=== PATIENT | male | born 1940 | race Caucasian/White ===

== ENCOUNTER 2017-12-06 18:00 | Emergency (ER) | payer MEDICARE ==
[2017-12-06] MEDS ORDERED: Nitroglycerin 0.4 MG TAB (25 Tab Bottle) ONE (18:25)
[2017-12-06 18:56] LABS: #Basophils 0.1 thou/uL (0.0-0.2); #Eosinphils 0.3 thou/uL (0.0-0.7); #Lymphocytes 2.9 thou/uL (1.20-3.40); #Neutrophils 5.1 thou/uL (1.40-6.50); %Basophils 0.6 % (0.0-1.0); %Eosinophils 3.2 % (0.0-10.0); %Lymphocytes 30.8 % (21.0-51.0); %Monocytes 10.5 % (0.0-10.0); %Neutrophils 54.9 % (42.0-75.0); Hemoglobin 14.4 g/dL (14.0-18.0); Mean Corpuscular HGB CONC 33.7 g/dL (32.0-36.0); Mean Corpuscular Hemoglobin 34.8 pg (27.0-31.0); Mean Platelet Volume 7.7 fL (7.4-10.4); Platelet Count 275 thou/uL (130-400); RBC Distribution Width 12.4 % (11.5-14.5); Red Blood Cell (RBC) Count 4.13 mill/uL (4.70-6.10); White Blood Cell (WBC) Count 9.3 thou/uL (4.8-10.8)
[2017-12-06] MEDS ORDERED: Azithromycin 250 MG TAB ONE (19:13)
[2017-12-06 19:17] LABS: ALT (SGPT) 48 U/L (8-55); AST (SGOT) 34 U/L (5-34); Alkaline Phosphatase 68 U/L (40-150); Anion Gap 17 mmol/L (10-20); BUN (Urea Nitrogen) 15 mg/dL (8.4-25.7); Bilirubin, Total 0.5 mg/dL (0.2-1.2); Calc. Creatinine Clearance 0 mL/min (70-130); Calcium 9.6 mg/dL (7.8-10.44); Carbon Dioxide 22 mmol/L (23-31); Chloride 101 mmol/L (98-107); Estimated GFR-MDRD 53; Globulin 2.4 g/dL (2.4-3.5); Glucose 109 mg/dL (83-110); Protein, Total 6.4 g/dL (5.8-8.1); Sodium 137 mmol/L (136-145)
[2017-12-06 19:26] LABS: Potassium 2.9 mmol/L (3.5-5.1)
--- NOTE | 2017-12-06 19:45 | RAD ---
PORTABLE CHEST: HISTORY: Anxiety. COMPARISON: 08/08/2014 FINDINGS: There is streaky density in the left lung base, which could represent areas of atelectasis or acute i nfiltrate. The right lung appears clear. The heart size is upper normal and stable. Aortic calcifi cation is again noted. IMPRESSION: Question new atelectasis or infiltrate in the left lower lung. POS: [facility]
--- NOTE | 2017-12-12 00:26 | EKG ---
Test Reason : Blood Pressure : / mmHG Vent. Rate : 086 BPM Atrial Rate : 086 BPM P-R Int : 150 ms QRS Dur : 112 ms QT Int : 382 ms P-R-T Axes : 049 -35 032 degrees QTc Int : 457 ms Normal sinus rhythm Left axis deviation Abnormal ECG Confirmed by WANDA AVILA ([id number]), newspaper photo editor EVITA ELIZONDO ([id number]) on 12/12/2017 12:25:14 AM Referred By: Confirmed By:WANDA AVILA
== END 2017-12-06 19:20 | disposition home or self-care (01) ==
LOC: ERS 18:00
DX: T17.928A Food in respiratory tract, part unspecified causing other injury, initial encounter (principal); J18.9 Pneumonia, unspecified organism; E78.5 Hyperlipidemia, unspecified; E66.9 Obesity, unspecified; G47.30 Sleep apnea, unspecified; E03.9 Hypothyroidism, unspecified; I10 Essential (primary) hypertension; Z79.82 Long term (current) use of aspirin; Z79.899 Other long term (current) drug therapy; Z85.828 Personal history of other malignant neoplasm of skin
CPT/HCPCS: 36415; 71045; 80053; 85025; 93005

== ENCOUNTER 2018-04-30 17:56 | Emergency (ER) | payer MEDICARE ==
[~2018-04-30 17:56] MED LIST: ISOVUE-370 76%-LOCM 1 ML ONE
[2018-04-30 18:49] LABS: #Basophils 0.1 thou/uL (0.0-0.2); #Eosinphils 0.2 thou/uL (0.0-0.7); #Lymphocytes 3.2 thou/uL (1.20-3.40); %Basophils 0.9 % (0.0-1.0); %Eosinophils 2.2 % (0.0-10.0); %Lymphocytes 43.3 % (21.0-51.0); %Monocytes 13.7 % (0.0-10.0); %Neutrophils 39.9 % (42.0-75.0); Hemoglobin 12.3 g/dL (14.0-18.0); Mean Corpuscular HGB CONC 35.8 g/dL (32.0-36.0); Mean Corpuscular Hemoglobin 35.8 pg (27.0-31.0); Mean Platelet Volume 7.8 fL (7.4-10.4); Platelet Count 206 thou/uL (130-400); RBC Distribution Width 11.9 % (11.5-14.5); Red Blood Cell (RBC) Count 3.43 mill/uL (4.70-6.10); White Blood Cell (WBC) Count 7.4 thou/uL (4.8-10.8)
--- NOTE | 2018-04-30 19:03 | RAD ---
PORTABLE AP CHEST X-RAY 04/30/18 HISTORY: Chest tightness and shortness of breath. COMPARISON: 12/06/17. FINDINGS: The cardiac silhouette and pulmonary vasculature are magnified by projection. Linear densities are se en at the left lung base probably related to either mild scarring or atelectasis. Lungs otherwise erik ear clear. Vascular calcifications seen in the thoracic aorta. No other interval change. IMPRESSION: Atelectasis versus scarring left lung base. There is otherwise no acute cardiopulmonary process. POS: [facility]
[2018-04-30 19:05] LABS: ALT (SGPT) 63 U/L (8-55); AST (SGOT) 64 U/L (5-34); Albumin 3.6 g/dL (3.4-4.8); Alkaline Phosphatase 55 U/L (40-150); Anion Gap 14 mmol/L (10-20); BUN (Urea Nitrogen) 23 mg/dL (8.4-25.7); Bilirubin, Total 0.5 mg/dL (0.2-1.2); Calc. Creatinine Clearance 0 mL/min (70-130); Calcium 8.1 mg/dL (7.8-10.44); Carbon Dioxide 22 mmol/L (23-31); Chloride 104 mmol/L (98-107); Estimated GFR-MDRD 47; Globulin 1.9 g/dL (2.4-3.5); Glucose 82 mg/dL (83-110); Potassium 3.3 mmol/L (3.5-5.1); Protein, Total 5.5 g/dL (5.8-8.1); Sodium 137 mmol/L (136-145)
[2018-04-30 19:08] LABS: Troponin I Less than 0.010 ng/mL (< 0.028)
[2018-04-30 19:20] LABS: Bilirubin Negative (Negative); Blood, Urine Negative (Negative); Clarity CLEAR (Clear); Glucose, Urine (Dipstick) Negative (Negative); Leukocyte Negative (Negative); Nitrite Negative (Negative); Protein, Urine (Dipstick) Negative (Neg-Trace); Specific Gravity, Urine 1.004 (1.002-1.036); Urobilinogen 0.2 mg/dL (0.2-1.0); pH, Urine 6.5 (5.0-9.0)
--- NOTE | 2018-04-30 19:57 | CT ---
CT ANGIOGRAM THORAX AND ABDOMEN WITH IV CONTRAST AND 3D RECONSTRUCTIONS 04/30/18 HISTORY: Acute chest tightness and shortness of breath. Hypotension. COMPARISON: CT angiogram chest on 07/24/10. FINDINGS: The thoracic and abdominal aorta are normal in caliber without evidence of an aortic dissection. Athe rosclerotic vascular calcification are seen in the coronary arteries as well as involving the thoraci c and abdominal aorta. There is a normal arrangement of the great vessels at the aortic arch which are patent. There is prom inent atherosclerotic plaque at the origin of the celiac artery with suggestion of mild to moderate n arrowing at the origin of the celiac artery. The superior mesenteric and inferior mesenteric arteries appear patent. There is a single patent right renal artery with single left renal artery with calcif ied atherosclerotic plaque at the origin of the left renal artery which limits evaluation of the orig in. The common iliac arteries are patent bilaterally. There is a 7 mm pulmonary nodule seen within the right middle lobe adjacent to the fissure. This was probably present on the prior exam but due to significant motion artifact was difficult to assess. Th is nodule does appear to measure larger in size in craniocaudal dimensions, but due to motion artifa ct this is difficult to assess. No additional pulmonary nodule or mass is seen. Scattered atelectasis is present within the lungs bilaterally. Post cholecystectomy changes are noted. The liver demonstrates diminished attenuation and although pr econtrast images were not provided, this is likely attributable to fatty infiltration. There is a sub centimeter difficult to characterize hypodense lesion present within the anterior segment of the righ t hepatic lobe. The spleen, pancreas, bilateral adrenal glands, and kidneys demonstrate a normal CT appearance for ph ase of imaging. The appendix is visualized and normal in caliber. Prominent degenerative changes are seen throughout the thoracic as well as the lumbar spine. There is a small fat containing supraumbilical hernia in the midline. IMPRESSION: 1. Right middle lobe pulmonary nodule which was also present on prior study in 2010. However, th e exact measurement on the prior exam is difficult to assess due to significant patient motion on the prior study; although appears overall stable from the study in 2009. However, given motion artifact between these examinations and as a conservative measurement, followup examination in 6 months to one year is recommended. 2. The thoracic and abdominal aorta are normal in caliber without evidence of an aortic dissecti on. 3. Atherosclerotic vascular calcifications. 4. Difficult to characterize hypodense lesion anterior segment right hepatic lobe. 5. Fatty infiltration of the liver. 6. Fat containing ventral abdominal wall hernia. Code LN POS: [facility]
[2018-04-30] MEDS ORDERED: Multivitamins, Adult 10 ML, Thiamine HCl 100 MG, Folic Acid 1 MG in Dextrose 5 %-0.45 %... IV SCH (21:00)
--- NOTE | 2018-05-04 13:33 | EKG ---
Test Reason : SOB Blood Pressure : / mmHG Vent. Rate : 064 BPM Atrial Rate : 064 BPM P-R Int : 164 ms QRS Dur : 096 ms QT Int : 404 ms P-R-T Axes : 050 -18 031 degrees QTc Int : 416 ms Normal sinus rhythm Normal ECG Confirmed by TAYLOR JOHNSON, MARTIN ([id number]), web content editor EVITA ELIZONDO ([id number]) on 05/04/2018 1:32:47 PM Referred By: Confirmed By:MARTIN VAZQUEZ MD
--- NOTE | 2018-05-04 13:35 | EKG ---
Test Reason : SOB Blood Pressure : / mmHG Vent. Rate : 069 BPM Atrial Rate : 069 BPM P-R Int : 000 ms QRS Dur : 094 ms QT Int : 406 ms P-R-T Axes : 000 -24 038 degrees QTc Int : 435 ms Normal sinus rhythm Normal ECG Confirmed by MARTIN VAZQUEZ MD ([id number]), photography editor EVITA ELIZONDO ([id number]) on 05/04/2018 1:34:54 PM Referred By: MALLORY VAZQUEZ Confirmed By:MARTIN VAZQUEZ MD
== END 2018-04-30 23:58 | disposition home or self-care (01) ==
LOC: ERS 17:56
DX: I95.9 Hypotension, unspecified (principal); F10.129 Alcohol abuse with intoxication, unspecified; E03.9 Hypothyroidism, unspecified; E78.5 Hyperlipidemia, unspecified; F41.9 Anxiety disorder, unspecified; F32.9 Major depressive disorder, single episode, unspecified; E66.9 Obesity, unspecified; G47.30 Sleep apnea, unspecified; I10 Essential (primary) hypertension; Z85.828 Personal history of other malignant neoplasm of skin; Z79.82 Long term (current) use of aspirin; Z79.899 Other long term (current) drug therapy; Y90.7 Blood alcohol level of 200-239 mg/100 ml
CPT/HCPCS: 36415; 71045; 71275; 80053; 80307; 81003; 82553; 83880; 84484; 85025; 93005; 94760; 96365; 96366; J3411; J7042

== ENCOUNTER 2018-10-20 07:41 | Emergency (ER) | payer MEDICARE ==
[2018-10-20 08:31] LABS: #Eosinphils 0.1 thou/uL (0.0-0.7); #Lymphocytes 1.5 thou/uL (1.20-3.40); #Monocytes 1.2 thou/uL (0.11-0.59); #Neutrophils 7.4 thou/uL (1.40-6.50); %Basophils 0.4 % (0.0-1.0); %Eosinophils 0.5 % (0.0-10.0); %Lymphocytes 15.1 % (21.0-51.0); %Monocytes 11.6 % (0.0-10.0); %Neutrophils 72.3 % (42.0-75.0); Hemoglobin 12.9 g/dL (14.0-18.0); Mean Corpuscular HGB CONC 34.3 g/dL (32.0-36.0); Mean Corpuscular Hemoglobin 34.6 pg (27.0-31.0); Mean Platelet Volume 7.5 fL (7.4-10.4); Platelet Count 228 thou/uL (130-400); RBC Distribution Width 12.2 % (11.5-14.5); Red Blood Cell (RBC) Count 3.72 mill/uL (4.70-6.10); White Blood Cell (WBC) Count 10.2 thou/uL (4.8-10.8)
[2018-10-20 08:52] LABS: ALT (SGPT) 30 U/L (8-55); AST (SGOT) 40 U/L (5-34); Albumin 4.3 g/dL (3.4-4.8); Alkaline Phosphatase 52 U/L (40-150); Anion Gap 17 mmol/L (10-20); BUN (Urea Nitrogen) 29 mg/dL (8.4-25.7); Bilirubin, Total 0.8 mg/dL (0.2-1.2); CK (CPK) 290 U/L (30-200); Calc. Creatinine Clearance 0 mL/min (70-130); Calcium 10.1 mg/dL (7.8-10.44); Carbon Dioxide 24 mmol/L (23-31); Chloride 101 mmol/L (98-107); Estimated GFR-MDRD 34; Globulin 2.2 g/dL (2.4-3.5); Glucose 114 mg/dL (83-110); Potassium 4.5 mmol/L (3.5-5.1); Protein, Total 6.5 g/dL (5.8-8.1); Sodium 137 mmol/L (136-145)
[2018-10-20] MEDS ORDERED: Ibuprofen 200 MG TAB ONE (09:00)
[2018-10-20] MEDS ORDERED: Acetaminophen 325 MG TAB ONE (09:00)
--- NOTE | 2018-10-20 09:00 | RAD ---
2 VIEW RIGHT LEG: Date: 10/20/18 INDICATION: Injury with pain, fall. FINDINGS: Osseous irregularity is demonstrated at the proximal fibula with an obliquely oriented minimally disp laced fracture present. 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 IMPRESSION: Proximal fibular fracture. If there is concern at the level of the knee, dedicated views of this megan on would be indicated as the knee is not reliably assessed on this exam. POS: [facility]
--- NOTE | 2018-10-20 09:02 | RAD ---
RIGHT KNEE 4 VIEWS: Date: 10/20/18 INDICATION: Fall, injury, pain. FINDINGS: There is an obliquely oriented, mildly displaced fracture of the proximal fibula. Moderate ostarthrit is of the right knee is present. There is mild joint capsular distention. Vascular calcifications see n. IMPRESSION: Proximal fibular fracture with mild displacement. POS: [facility]
--- NOTE | 2018-10-20 09:23 | RAD ---
3 VIEWS RIGHT ANKLE: Date: 10/20/18 COMPARISON: None. HISTORY: Right ankle pain after falling from standing. FINDINGS: Three views of the right ankle show no evidence of acute fracture or dislocation. Mild lateral soft t issue swelling is seen. No degenerative changes are present. IMPRESSION: No evidence of acute osseous abnormality. POS: [facility]
--- NOTE | 2018-10-20 09:53 | CT ---
CT BRAIN WITHOUT CONTRAST: History: Fall. Headache. FINDINGS: Comparison made with exam of 11-02-12. There are changes of cortical atrophy and chronic small vessel ischemic disease. Ventricular size is appropriate and basilar cisterns patent. No evidence of infarct, hemorrhage, midline shift, or abnorm al extraaxial fluid collections seen. The bony calvarium is intact. The visualized paranasal sinuses and mastoid air cells are well aerated. IMPRESSION: No CT evidence of acute intracranial process. POS: [facility]
== END 2018-10-20 10:21 | disposition home or self-care (01) ==
LOC: ERS 07:41
DX: S82.831A Other fracture of upper and lower end of right fibula, initial encounter for closed fracture (principal); E78.5 Hyperlipidemia, unspecified; E66.9 Obesity, unspecified; G47.30 Sleep apnea, unspecified; E03.9 Hypothyroidism, unspecified; I10 Essential (primary) hypertension; F41.9 Anxiety disorder, unspecified; F32.9 Major depressive disorder, single episode, unspecified; Z79.82 Long term (current) use of aspirin; Z79.899 Other long term (current) drug therapy; W17.89XA Other fall from one level to another, initial encounter
CPT/HCPCS: 36415; 70450; 80053; 82550; 84484; 85025; 93005

== ENCOUNTER 2019-04-06 13:01 | Outpatient (CLI) | payer MEDICARE ==
--- NOTE | 2019-04-06 14:57 | ULT ---
RENAL ULTRASOUND: History: Chronic renal disease. FINDINGS: Real-time imaging of the right and left kidneys were performed. The right kidney measures 8.6 cm in l ength and the left kidney measures 9.7 cm. No signs of cyst, mass, or obstruction. Bladder region erik ears unremarkable. IMPRESSION: Unremarkable renal ultrasound. POS: [facility]
== END 2019-04-06 13:02 | disposition home or self-care (01) ==
LOC: BICULT 13:01
PROVIDERS: ATTEND Urology
DX: N18.3 Chronic kidney disease, stage 3 (moderate) (principal)
CPT/HCPCS: 76770

== ENCOUNTER 2019-07-02 20:00 | Emergency (ER) | payer MEDICARE ==
[2019-07-02 20:24] LABS: #Basophils 0.1 thou/uL (0.0-0.2); #Eosinphils 0.2 thou/uL (0.0-0.7); #Lymphocytes 3.1 thou/uL (1.20-3.40); #Monocytes 1.1 thou/uL (0.11-0.59); #Neutrophils 4.3 thou/uL (1.40-6.50); %Basophils 0.7 % (0.0-1.0); %Eosinophils 2.6 % (0.0-10.0); %Lymphocytes 35.2 % (21.0-51.0); %Monocytes 12.8 % (0.0-10.0); %Neutrophils 48.8 % (42.0-75.0); Hemoglobin 11.3 g/dL (14.0-18.0); Mean Corpuscular HGB CONC 35.7 g/dL (32.0-36.0); Mean Corpuscular Hemoglobin 35.4 pg (27.0-31.0); Mean Corpuscular Volume 99.2 fL (78.0-98.0); Mean Platelet Volume 7.5 fL (7.4-10.4); Platelet Count 238 thou/uL (130-400); RBC Distribution Width 11.9 % (11.5-14.5); Red Blood Cell (RBC) Count 3.21 mill/uL (4.70-6.10); White Blood Cell (WBC) Count 8.7 thou/uL (4.8-10.8)
[2019-07-02 20:47] LABS: ALT (SGPT) 33 U/L (8-55); AST (SGOT) 27 U/L (5-34); Albumin 3.9 g/dL (3.4-4.8); Alcohol 222 mg/dL (Less than 10); Alkaline Phosphatase 97 U/L (40-110); Anion Gap 12 mmol/L (10-20); BUN (Urea Nitrogen) 18 mg/dL (8.4-25.7); Bilirubin, Total 0.4 mg/dL (0.2-1.2); Calc. Creatinine Clearance 0 mL/min (70-130); Calcium 8.9 mg/dL (7.8-10.44); Carbon Dioxide 24 mmol/L (23-31); Chloride 105 mmol/L (98-107); Estimated GFR-MDRD 56; Globulin 2.1 g/dL (2.4-3.5); Glucose 121 mg/dL (83-110); Sodium 138 mmol/L (136-145)
[2019-07-02 20:49] LABS: Potassium 2.9 mmol/L (3.5-5.1)
[2019-07-02] MEDS ORDERED: Potassium Chloride 20 MEQ TAB ONE ×2 (21:01→21:25)
--- NOTE | 2019-07-02 21:12 | CT ---
Exam: Head CT without contrast HISTORY: Dizziness. Fall. Syncope. COMPARISON: 10/20/2018 FINDINGS: Hemorrhage: No intraparenchymal hemorrhage or extra-axial hematoma. Brain parenchyma: Cortical trent-white matter differentiation is preserved. No mass effect or midline shift. Basilar cisterns are patent.Age-appropriate atrophy. Ventricular system: Ventricles and sulci are patent and symmetric. Calvarium: Intact. Sinuses and mastoid air cells: Adequate aeration. IMPRESSION: No acute intracranial process.
--- NOTE | 2019-07-02 22:07 | CT ---
EXAM: CT ABDOMEN AND PELVIS HISTORY: Abdomen pain COMPARISON: 07/23/2010 Correlation: Dissection protocol 04/30/2018 Procedure: Multiple contiguous axial images were obtained and a CT of the abdomen and pelvis with IV contrast. C oronal reformats were performed. FINDINGS: Lower Chest: Linear opacities in the lingula and left lower lobe may represent subsegmental atelectas is or scarring. Vessels: Visualized aorta demonstrates atherosclerosis. No aneurysm or dissection. No periaortic fat stranding. Heart: Upper normal heart size. No significant pericardial fluid. Calcification of the mitral annulus . Coronary calcifications are present. Abdomen: Portal vein:Patent Gallbladder: Surgically absent Liver: Stable 1.1 cm hypodensity in the right hepatic lobe and 1.1 cm hypodensity in the left hepatic lobe. No enhancing masses in the hepatic parenchyma. Pancreas: within normal limits. Spleen: within normal limits. Adrenals: within normal limits. Kidneys: Symmetric enhancement. No obstructive uropathy. Subcentimeter hypodensities in the right nakita al cortex, too small to further characterize. Peritoneum: No ascites or free air, no fluid collection. Bowel: Limited evaluation due to the lack of oral contrast administration. No evidence of bowel obstr uction. Ileocecal junction is unremarkable. Normal caliber appendix. Scattered fecal material in a nondistended, nondilated colon. Sigmoid colon diverticulosis. No diverticulitis. Mesentery and Retroperitoneum: No enlarged mesenteric or retroperitoneal lymph nodes. Abdominal Wall: Ventral abdominal wall hernia containing mesenteric fat. Pelvis: Reproductive Organs: Mild enlarged prostate gland. Pelvis: No mass, lymphadenopathy, free air or free fluid. Bladder: within normal limits. Bones: Extensive heterogeneity involving the endplates of these lumbar spine and visualized thoracic spine suggesting chronic degenerative change. IMPRESSION: 1. No evidence of acute intraabdominal\pelvic abnormality. 2. Additional findings as above.
== END 2019-07-02 22:40 | disposition home or self-care (01) ==
LOC: ERS 20:00
DX: F10.129 Alcohol abuse with intoxication, unspecified (principal); R55 Syncope and collapse; E78.5 Hyperlipidemia, unspecified; E03.9 Hypothyroidism, unspecified; I10 Essential (primary) hypertension; Z79.899 Other long term (current) drug therapy; W07.XXXA Fall from chair, initial encounter
CPT/HCPCS: 36415; 70450; 74177; 80053; 80307; 83605; 85025; 93005; 96360; Q9966

== ENCOUNTER 2019-08-30 19:14 | Emergency (ER) | payer MEDICARE ==
[2019-08-30] MEDS ORDERED: Aspirin Chewable 81 MG TAB ONE (19:37)
[2019-08-30 19:41] LABS: #Basophils 0.1 thou/uL (0.0-0.2); #Eosinphils 0.2 thou/uL (0.0-0.7); #Neutrophils 3.6 thou/uL (1.40-6.50); %Eosinophils 2.9 % (0.0-10.0); %Lymphocytes 38.3 % (21.0-51.0); %Monocytes 12.8 % (0.0-10.0); %Neutrophils 45.1 % (42.0-75.0); Hemoglobin 13.5 g/dL (14.0-18.0); Mean Corpuscular HGB CONC 35.7 g/dL (32.0-36.0); Mean Corpuscular Volume 98.1 fL (78.0-98.0); Mean Platelet Volume 7.8 fL (7.4-10.4); Platelet Count 224 thou/uL (130-400); RBC Distribution Width 12.3 % (11.5-14.5); Red Blood Cell (RBC) Count 3.87 mill/uL (4.70-6.10); White Blood Cell (WBC) Count 7.9 thou/uL (4.8-10.8)
[2019-08-30 20:00] LABS: ALT (SGPT) 37 U/L (8-55); AST (SGOT) 43 U/L (5-34); Albumin 4.6 g/dL (3.4-4.8); Alkaline Phosphatase 81 U/L (40-110); Anion Gap 15 mmol/L (10-20); BUN (Urea Nitrogen) 20 mg/dL (8.4-25.7); Bilirubin, Total 0.5 mg/dL (0.2-1.2); Calc. Creatinine Clearance 0 mL/min (70-130); Calcium 9.8 mg/dL (7.8-10.44); Carbon Dioxide 25 mmol/L (23-31); Chloride 106 mmol/L (98-107); Estimated GFR-MDRD 59; Globulin 2.5 g/dL (2.4-3.5); Glucose 126 mg/dL (83-110); Potassium 3.1 mmol/L (3.5-5.1); Protein, Total 7.1 g/dL (5.8-8.1); Sodium 143 mmol/L (136-145)
--- NOTE | 2019-08-30 20:00 | RAD ---
EXAM: CHEST ONE VIEW HISTORY: Dyspnea, shortness of breath. COMPARISON: 04/30/2018. FINDINGS: Cardiac silhouette is magnified by projection but does appear at the upper limits of normal to mildly enlarged. The pulmonary vasculature is within normal limits. A linear density is seen at the medial right lung base which appears to represent a vascular structure. The lungs are otherwise clear . Vascular calcifications are seen in the thoracic aorta. There has been no significant interval change compared to the prior exam. IMPRESSION: No acute cardiopulmonary process.
== END 2019-08-30 21:18 | disposition home or self-care (01) ==
LOC: ERS 19:14
DX: R07.9 Chest pain, unspecified (principal); E66.9 Obesity, unspecified; G47.30 Sleep apnea, unspecified; E03.9 Hypothyroidism, unspecified; I10 Essential (primary) hypertension; F41.9 Anxiety disorder, unspecified; F32.9 Major depressive disorder, single episode, unspecified; E78.5 Hyperlipidemia, unspecified; E78.00 Pure hypercholesterolemia, unspecified
CPT/HCPCS: 71045; 80053; 84484; 85025; 85379; 93005

== ENCOUNTER 2020-02-28 08:05 | Outpatient (CLI) | payer MEDICARE ==
--- NOTE | 2020-02-28 09:01 | CT ---
EXAM: CT brain without and with contrast HISTORY: Syncope COMPARISON: None TECHNIQUE: Multiple contiguous axial images were obtained and a CT of the brain without and with cont rast. FINDINGS: There are scattered hypodensities in the subcortical and periventricular white matter consi stent with small vessel ischemic disease. There is no evidence of hydrocephalus, intracranial hemorrhage, or extra-axial fluid collection. No abnormal enhancement is seen. The calvarium and overlying soft tissues are unremarkable. The visualized paranasal sinuses and masto id air cells are well aerated. IMPRESSION: No evidence of acute intracranial abnormality
[2020-02-28] MEDS ORDERED: Iopamidol-370 76% 500 ML 1 ML ONE (15:41)
== END 2020-02-28 08:06 | disposition home or self-care (01) ==
LOC: BICCT 08:05
PROVIDERS: ATTEND Internal Medicine Cardiovascular Disease
DX: R55 Syncope and collapse (principal)
CPT/HCPCS: 70470; 82565; Q9967

== ENCOUNTER 2021-02-11 16:44 | Emergency (ER) | payer MEDICARE ==
[2021-02-11 18:03] LABS: #Basophils 0.1 thou/uL (0.0-0.2); #Eosinphils 0.3 thou/uL (0.0-0.7); #Lymphocytes 2.6 thou/uL (1.20-3.40); #Monocytes 0.9 thou/uL (0.11-0.59); #Neutrophils 3.4 thou/uL (1.40-6.50); %Eosinophils 4.4 % (0.0-10.0); %Lymphocytes 35.6 % (21.0-51.0); %Monocytes 11.8 % (0.0-10.0); %Neutrophils 47.1 % (42.0-75.0); Hemoglobin 13.6 g/dL (14.0-18.0); Mean Corpuscular HGB CONC 35.2 g/dL (32.0-36.0); Mean Corpuscular Hemoglobin 35.7 pg (27.0-31.0); Mean Platelet Volume 8.2 fL (7.4-10.4); Platelet Count 193 thou/uL (130-400); RBC Distribution Width 12.4 % (11.5-14.5); Red Blood Cell (RBC) Count 3.82 mill/uL (4.70-6.10); White Blood Cell (WBC) Count 7.2 thou/uL (4.8-10.8)
[2021-02-11 18:26] LABS: ALT (SGPT) 51 U/L (8-55); AST (SGOT) 65 U/L (5-34); Albumin 4.2 g/dL (3.4-4.8); Alkaline Phosphatase 73 U/L (40-110); Anion Gap 15 mmol/L (10-20); BUN (Urea Nitrogen) 19 mg/dL (8.4-25.7); Bilirubin, Total 0.8 mg/dL (0.2-1.2); Calc. Creatinine Clearance 0 mL/min (70-130); Carbon Dioxide 25 mmol/L (23-31); Chloride 106 mmol/L (98-107); Globulin 2.1 g/dL (2.4-3.5); Glucose 107 mg/dL (83-110); Potassium 3.9 mmol/L (3.5-5.1); Protein, Total 6.3 g/dL (5.8-8.1); Sodium 142 mmol/L (136-145)
== END 2021-02-11 19:11 | disposition home or self-care (01) ==
LOC: ERS 16:44
DX: R55 Syncope and collapse (principal); E78.5 Hyperlipidemia, unspecified; E78.00 Pure hypercholesterolemia, unspecified; E66.9 Obesity, unspecified; G47.30 Sleep apnea, unspecified; E03.9 Hypothyroidism, unspecified; I10 Essential (primary) hypertension
CPT/HCPCS: 36415; 70450; 71045; 80053; 84484; 85025; 93005; 94760

== ENCOUNTER → 2021-07-30 | Emergency (ER) | payer MEDICARE ==
[~2021-07-30] MED LIST changes: -ISOVUE-370 76%-LOCM 1 ML ONE; +Meclizine HCl 25 MG TAB ONE
[2021-07-30 11:09] LABS: #Basophils 0.1 thou/uL (0.0-0.2); #Eosinphils 0.2 thou/uL (0.0-0.7); #Lymphocytes 2.3 thou/uL (1.20-3.40); #Monocytes 0.9 thou/uL (0.11-0.59); %Eosinophils 3.4 % (0.0-10.0); %Lymphocytes 35.2 % (21.0-51.0); %Monocytes 13.8 % (0.0-10.0); %Neutrophils 46.6 % (42.0-75.0); Hemoglobin 14.5 g/dL (14.0-18.0); Mean Corpuscular HGB CONC 34.5 g/dL (32.0-36.0); Mean Corpuscular Hemoglobin 35.3 pg (27.0-31.0); Mean Platelet Volume 7.6 fL (7.4-10.4); Platelet Count 200 thou/uL (130-400); RBC Distribution Width 12.2 % (11.5-14.5); White Blood Cell (WBC) Count 6.4 thou/uL (4.8-10.8)
[2021-07-30 11:25] LABS: ALT (SGPT) 50 U/L (8-55); AST (SGOT) 66 U/L (5-34); Albumin 4.2 g/dL (3.4-4.8); Alcohol Less than 10 mg/dL (Less than 10); Alkaline Phosphatase 64 U/L (40-110); Anion Gap 10 mmol/L (10-20); BUN (Urea Nitrogen) 13 mg/dL (8.4-25.7); Calc. Creatinine Clearance 0 mL/min (70-130); Calcium 9.5 mg/dL (7.8-10.44); Carbon Dioxide 29 mmol/L (23-31); Chloride 105 mmol/L (98-107); Globulin 2.7 g/dL (2.4-3.5); Glucose 107 mg/dL (83-110); Potassium 3.9 mmol/L (3.5-5.1); Protein, Total 6.9 g/dL (5.8-8.1); Sodium 140 mmol/L (136-145)
== END ==
LOC: ERS 10:14
DX: R42 Dizziness and giddiness (principal); I10 Essential (primary) hypertension; E78.5 Hyperlipidemia, unspecified; E78.00 Pure hypercholesterolemia, unspecified; E03.9 Hypothyroidism, unspecified; E66.9 Obesity, unspecified; G47.30 Sleep apnea, unspecified
CPT/HCPCS: 36415; 80053; 80307; 84484; 85025; 93005

== ENCOUNTER 2021-10-25 20:11 | Emergency (ER) | payer MEDICARE ==
[2021-10-25 21:31] LABS: Hemoglobin 13.6 g/dL (14.0-18.0); Mean Corpuscular Hemoglobin 36.3 pg (27.0-31.0); Mean Platelet Volume 7.6 fL (7.4-10.4); Platelet Count 178 thou/uL (130-400); RBC Distribution Width 12.3 % (11.5-14.5); Red Blood Cell (RBC) Count 3.73 mill/uL (4.70-6.10); White Blood Cell (WBC) Count 5.4 thou/uL (4.8-10.8)
[2021-10-25 21:52] LABS: ALT (SGPT) 34 U/L (8-55); AST (SGOT) 39 U/L (5-34); Albumin 3.7 g/dL (3.4-4.8); Alkaline Phosphatase 75 U/L (40-110); Anion Gap 14 mmol/L (10-20); BUN (Urea Nitrogen) 13 mg/dL (8.4-25.7); Bilirubin, Total 0.3 mg/dL (0.2-1.2); CK (CPK) 66 U/L (30-200); Calc. Creatinine Clearance 0 mL/min (70-130); Calcium 8.5 mg/dL (7.8-10.44); Carbon Dioxide 23 mmol/L (23-31); Chloride 108 mmol/L (98-107); Globulin 2.2 g/dL (2.4-3.5); Glucose 149 mg/dL (83-110); Magnesium 1.7 mg/dL (1.6-2.6); Potassium 3.5 mmol/L (3.5-5.1); Protein, Total 5.9 g/dL (5.8-8.1); Sodium 141 mmol/L (136-145)
[2021-10-25 21:57] LABS: Band 4 % (5-11); Eosinophils 4 % (0-10); Lymphocytes 44 % (21-51); MDiff Complete? YES; Monocytes 13 % (0-10); Neutrophil 33 % (42-75); Reactive Lymphocytes 1 % (0-10)
== END 2021-10-25 23:26 | disposition home or self-care (01) ==
LOC: ERS 20:11
DX: S00.83XA Contusion of other part of head, initial encounter (principal); E78.5 Hyperlipidemia, unspecified; G47.30 Sleep apnea, unspecified; E03.9 Hypothyroidism, unspecified; I10 Essential (primary) hypertension; E11.9 Type 2 diabetes mellitus without complications; E78.00 Pure hypercholesterolemia, unspecified; E66.9 Obesity, unspecified; Z79.82 Long term (current) use of aspirin; Z79.899 Other long term (current) drug therapy; W19.XXXA Unspecified fall, initial encounter
CPT/HCPCS: 36415; 70450; 71045; 72125; 80053; 82550; 83735; 84484; 85025; 93005

== ENCOUNTER 2022-02-26 20:51 | Emergency (ER) | payer MEDICARE ==
[2022-02-26 22:14] LABS: Hemoglobin 13.9 g/dL (14.0-18.0); Mean Corpuscular HGB CONC 33.4 g/dL (32.0-36.0); Mean Corpuscular Hemoglobin 35.1 pg (27.0-31.0); Mean Platelet Volume 7.7 fL (7.4-10.4); Platelet Count 204 thou/uL (130-400); RBC Distribution Width 12.4 % (11.5-14.5); Red Blood Cell (RBC) Count 3.97 mill/uL (4.70-6.10); White Blood Cell (WBC) Count 8.5 thou/uL (4.8-10.8)
[2022-02-26 22:15] LABS: #Basophils 0.1 thou/uL (0.0-0.2); #Eosinphils 0.3 thou/uL (0.0-0.7); #Lymphocytes 2.7 thou/uL (1.20-3.40); #Monocytes 1.2 thou/uL (0.11-0.59); #Neutrophils 4.2 thou/uL (1.40-6.50); %Basophils 0.8 % (0.0-1.0); %Eosinophils 3.6 % (0.0-10.0); %Lymphocytes 31.3 % (21.0-51.0); %Monocytes 14.4 % (0.0-10.0); %Neutrophils 49.9 % (42.0-75.0)
[2022-02-26 22:33] LABS: ALT (SGPT) 35 U/L (8-55); AST (SGOT) 43 U/L (5-34); Albumin 3.8 g/dL (3.4-4.8); Alkaline Phosphatase 64 U/L (40-110); Anion Gap 12 mmol/L (10-20); BUN (Urea Nitrogen) 14 mg/dL (8.4-25.7); Bilirubin, Total 0.5 mg/dL (0.2-1.2); Calc. Creatinine Clearance 0 mL/min (70-130); Calcium 8.6 mg/dL (7.8-10.44); Carbon Dioxide 25 mmol/L (23-31); Chloride 106 mmol/L (98-107); Globulin 2.5 g/dL (2.4-3.5); Glucose 100 mg/dL (83-110); Lipase 42 U/L (8-78); Potassium 3.4 mmol/L (3.5-5.1); Protein, Total 6.3 g/dL (5.8-8.1); Sodium 140 mmol/L (136-145)
[2022-02-26 22:35] LABS: MDiff Complete? YES; Macrocytosis MODERATE=16-30 cells (100X) (0-5/hpf); Ovalocytes SLIGHT = 2-5 cells (100X) (0-1/hpf); Platelet Morphology Comment Appears Adequate
[2022-02-26] MEDS ORDERED: Multivitamins, Adult 10 ML, Thiamine HCl 100 MG, Folic Acid 1 MG in Dextrose 5 %-0.45 %... IV SCH (22:45)
[2022-02-26 23:03] LABS: Acetaminophen Less than 10.0 mcg/mL (10.0-30.0); Alcohol 189 mg/dL (Less than 10); Salicylate Less than 8.0 mg/dL (15.0-30.0)
[2022-02-26 23:04] LABS: Amphetamine Not Detected (NotDetected); Barbiturates Screen Not Detected (NotDetected); Benzodiazepine Screen Not Detected (NotDetected); Cocaine Metabolite Screen Not Detected (NotDetected); Methadone Not Detected (NotDetected); Methamphetamine Not Detected (NotDetected); Opiate Screen Not Detected (NotDetected); Oxycodone Screen Not Detected (NotDetected); Phencyclidine (PCP) Not Detected (NotDetected); THC/Cannabinoid Screen Not Detected (NotDetected); Tricyclic Screen Not Detected (NotDetected)
[2022-02-26 23:31] LABS: Bilirubin Negative (Negative); Blood, Urine Negative (Negative); Clarity Clear (Clear); Glucose, Urine (Dipstick) Normal (Negative); Ketone, Urine Negative (Negative); Leukocyte Negative Leu/uL (Negative); Nitrite Negative (Negative); Protein, Urine (Dipstick) Negative (Neg-Trace); Specific Gravity, Urine 1.003 (1.002-1.036); Urobilinogen Normal mg/dL (Less than 2); pH, Urine 6.5 (5.0-9.0)
== END 2022-02-27 00:50 | disposition home or self-care (01) ==
LOC: ERS 20:51
DX: F10.129 Alcohol abuse with intoxication, unspecified (principal); Y90.6 Blood alcohol level of 120-199 mg/100 ml; E78.5 Hyperlipidemia, unspecified; E78.00 Pure hypercholesterolemia, unspecified; E66.9 Obesity, unspecified; G47.30 Sleep apnea, unspecified; E03.9 Hypothyroidism, unspecified; I10 Essential (primary) hypertension; Z85.828 Personal history of other malignant neoplasm of skin; Z79.899 Other long term (current) drug therapy; Z79.82 Long term (current) use of aspirin; W18.30XA Fall on same level, unspecified, initial encounter; Y92.002 Bathroom of unspecified non-institutional (private) residence as the place of occurrence of the external cause
CPT/HCPCS: 36415; 70450; 71045; 80053; 80306; 80307; 81003; 83690; 84484; 85025; 93005; 96365; J3411; J7042

== ENCOUNTER 2022-07-31 08:00 | Emergency (ER) | payer MEDICARE ==
[2022-07-31] MEDS ORDERED: Ketorolac Tromethamine 30 MG/ML VIAL ONE (08:34)
== END 2022-07-31 09:23 | disposition home or self-care (01) ==
LOC: ERS 08:00
DX: M19.031 Primary osteoarthritis, right wrist (principal); E66.9 Obesity, unspecified; E78.00 Pure hypercholesterolemia, unspecified; E03.9 Hypothyroidism, unspecified; I10 Essential (primary) hypertension; Z79.899 Other long term (current) drug therapy; Z79.82 Long term (current) use of aspirin
CPT/HCPCS: 96372; J1885

== ENCOUNTER 2022-10-08 09:48 | Inpatient (IN) | payer MEDICARE ==
[2022-10-08 11:19] LABS: #Basophils 0.1 thou/uL (0.0-0.2); #Eosinphils 0.3 thou/uL (0.0-0.7); #Lymphocytes 2.1 thou/uL (1.20-3.40); #Monocytes 1.2 thou/uL (0.11-0.59); #Neutrophils 5.6 thou/uL (1.40-6.50); %Basophils 0.7 % (0.0-1.0); %Eosinophils 3.1 % (0.0-10.0); %Lymphocytes 22.6 % (21.0-51.0); %Monocytes 12.6 % (0.0-10.0); Hemoglobin 13.1 g/dL (14.0-18.0); Mean Corpuscular HGB CONC 32.4 g/dL (32.0-36.0); Mean Corpuscular Hemoglobin 33.5 pg (27.0-31.0); Mean Platelet Volume 7.4 fL (7.4-10.4); Platelet Count 443 10x3/uL (130-400); RBC Distribution Width 12.7 % (11.5-14.5); Red Blood Cell (RBC) Count 3.92 mill/uL (4.70-6.10); White Blood Cell (WBC) Count 9.2 10x3/uL (4.8-10.8)
[2022-10-08 11:38] LABS: ALT (SGPT) 19 U/L (8-55); AST (SGOT) 34 U/L (5-34); Albumin 3.6 g/dL (3.4-4.8); Alkaline Phosphatase 105 U/L (40-110); Anion Gap 16 mmol/L (10-20); BUN (Urea Nitrogen) 15 mg/dL (8.4-25.7); Bilirubin, Total 0.6 mg/dL (0.2-1.2); Calc. Creatinine Clearance 0 mL/min (70-130); Carbon Dioxide 20 mmol/L (23-31); Chloride 105 mmol/L (98-107); Estimated GFR 86; Globulin 2.8 g/dL (2.4-3.5); Glucose 117 mg/dL (83-110); Protein, Total 6.4 g/dL (5.8-8.1); Sodium 137 mmol/L (136-145)
[2022-10-08 12:10] LABS: CK (CPK) 27 U/L (30-200); Lipase 23 U/L (8-78)
[2022-10-08 13:20] LABS: SARS-CoV-2 NAA Rapid Test Not Detected (NotDetected)
[2022-10-08 19:35] VITALS: BMI 32.6
[2022-10-08] MEDS ORDERED: Acetaminophen 325 MG TAB PO PRN (19:39)
[2022-10-08] MEDS ORDERED: Ondansetron PF 4 MG/2 ML Vial IVP PRN (19:39)
[2022-10-08] MEDS: Latanoprost 0.005% Ophth Soln 2.5 ml Bottle EA EYE SCH (21:34)
[2022-10-08] MEDS: Multivitamins, Adult 10 ML, Folic Acid 1 MG, Thiamine HCl 100 MG in Dextrose 5 %-0.45 %... IV SCH (21:34)
[2022-10-08] MEDS: Rosuvastatin 20 MG TAB PO SCH (21:35)
[2022-10-09 04:56] LABS: #Eosinphils 0.2 thou/uL (0.0-0.7); #Lymphocytes 1.3 thou/uL (1.20-3.40); #Monocytes 1.2 thou/uL (0.11-0.59); #Neutrophils 5.7 thou/uL (1.40-6.50); %Basophils 0.6 % (0.0-1.0); %Eosinophils 2.2 % (0.0-10.0); %Lymphocytes 15.3 % (21.0-51.0); %Monocytes 14.2 % (0.0-10.0); %Neutrophils 67.7 % (42.0-75.0); Hemoglobin 12.2 g/dL (14.0-18.0); Mean Corpuscular HGB CONC 33.2 g/dL (32.0-36.0); Mean Corpuscular Hemoglobin 34.3 pg (27.0-31.0); Mean Platelet Volume 7.2 fL (7.4-10.4); Platelet Count 384 10x3/uL (130-400); RBC Distribution Width 12.5 % (11.5-14.5); Red Blood Cell (RBC) Count 3.56 mill/uL (4.70-6.10); White Blood Cell (WBC) Count 8.4 10x3/uL (4.8-10.8)
[2022-10-09] MEDS: Levothyroxine Sodium 100 MCG TAB PO SCH (05:06)
[2022-10-09 05:16] LABS: Anion Gap 12 mmol/L (10-20); BUN (Urea Nitrogen) 12 mg/dL (8.4-25.7); Calc. Creatinine Clearance 113 mL/min (70-130); Calcium 8.6 mg/dL (7.8-10.44); Carbon Dioxide 21 mmol/L (23-31); Chloride 103 mmol/L (98-107); Estimated GFR 90; Glucose 121 mg/dL (83-110); Potassium 3.3 mmol/L (3.5-5.1); Sodium 133 mmol/L (136-145)
[2022-10-09] MEDS ORDERED: Potassium Chloride 20 MEQ TAB PO SCH (08:00)
[2022-10-09] MEDS: Fenofibrate Nanocrystallized 145 MG TAB PO SCH (08:55)
[2022-10-09] MEDS: Trospium 20 MG TAB PO SCH (08:55)
[2022-10-09] MEDS: Multivitamins, Adult 10 ML, Folic Acid 1 MG, Thiamine HCl 100 MG in Dextrose 5 %-0.45 %... IV SCH (18:03)
[2022-10-09] MEDS: Rosuvastatin 20 MG TAB PO SCH (20:57)
[2022-10-09] MEDS: Latanoprost 0.005% Ophth Soln 2.5 ml Bottle EA EYE SCH (20:58)
[2022-10-10] MEDS: Levothyroxine Sodium 100 MCG TAB PO SCH (06:14)
[2022-10-10] MEDS ORDERED: Promethazine HCl 12.5 MG in Sodium Chloride 0.9% 50 ML IVPB PRN (10:05)
[2022-10-10 10:43] LABS: Magnesium 1.6 mg/dL (1.6-2.6); Phosphorus 2.8 mg/dL (2.3-4.7)
[2022-10-10] MEDS ORDERED: Iopamidol 370 76% 100 ML VIAL ONE (11:02)
[2022-10-10] MEDS: Trospium 20 MG TAB PO SCH (12:19)
[2022-10-10] MEDS: Fenofibrate Nanocrystallized 145 MG TAB PO SCH (12:19)
[2022-10-10] MEDS: Multivitamins, Adult 10 ML, Folic Acid 1 MG, Thiamine HCl 100 MG in Dextrose 5 %-0.45 %... IV SCH (16:21)
[2022-10-10 18:05] LABS: #Lymphocytes 0.9 thou/uL (1.20-3.40); #Monocytes 1.1 thou/uL (0.11-0.59); #Neutrophils 10.1 thou/uL (1.40-6.50); %Lymphocytes 7.3 % (21.0-51.0); %Monocytes 9.1 % (0.0-10.0); %Neutrophils 83.6 % (42.0-75.0); Hemoglobin 13.5 g/dL (14.0-18.0); Mean Corpuscular HGB CONC 33.2 g/dL (32.0-36.0); Mean Corpuscular Hemoglobin 34.5 pg (27.0-31.0); Mean Platelet Volume 7.3 fL (7.4-10.4); Platelet Count 432 10x3/uL (130-400); RBC Distribution Width 12.5 % (11.5-14.5); Red Blood Cell (RBC) Count 3.91 mill/uL (4.70-6.10); White Blood Cell (WBC) Count 12.1 10x3/uL (4.8-10.8)
[2022-10-10] MEDS: Sodium Chloride 0.9% 1,000 ML IV SCH (18:07)
[2022-10-10 18:21] LABS: Lactic Acid 1.3 mmol/L (0.5-2.2)
[2022-10-10] MEDS: Latanoprost 0.005% Ophth Soln 2.5 ml Bottle EA EYE SCH (21:07)
[2022-10-11] MEDS: Rosuvastatin 20 MG TAB PO SCH (01:16)
[2022-10-11] MEDS: Sodium Chloride 0.9% 1,000 ML IV SCH ×3 (04:26→20:55)
[2022-10-11 08:33] LABS: #Monocytes 1.4 thou/uL (0.11-0.59); #Neutrophils 10.9 thou/uL (1.40-6.50); %Basophils 0.1 % (0.0-1.0); %Eosinophils 0.2 % (0.0-10.0); %Lymphocytes 7.7 % (21.0-51.0); %Monocytes 10.2 % (0.0-10.0); %Neutrophils 81.9 % (42.0-75.0); Hemoglobin 12.4 g/dL (14.0-18.0); Mean Corpuscular HGB CONC 32.9 g/dL (32.0-36.0); Mean Corpuscular Hemoglobin 34.1 pg (27.0-31.0); Mean Platelet Volume 7.2 fL (7.4-10.4); Platelet Count 449 10x3/uL (130-400); RBC Distribution Width 12.4 % (11.5-14.5); Red Blood Cell (RBC) Count 3.64 mill/uL (4.70-6.10); White Blood Cell (WBC) Count 13.3 10x3/uL (4.8-10.8)
[2022-10-11 08:52] LABS: Phosphorus 2.7 mg/dL (2.3-4.7)
[2022-10-11 08:53] LABS: Anion Gap 15 mmol/L (10-20); BUN (Urea Nitrogen) 16 mg/dL (8.4-25.7); Calc. Creatinine Clearance 107 mL/min (70-130); Calcium 8.7 mg/dL (7.8-10.44); Carbon Dioxide 25 mmol/L (23-31); Chloride 96 mmol/L (98-107); Estimated GFR 89; Glucose 121 mg/dL (83-110); Magnesium 1.7 mg/dL (1.6-2.6); Potassium 3.5 mmol/L (3.5-5.1); Sodium 132 mmol/L (136-145)
[2022-10-11] MEDS: Fenofibrate Nanocrystallized 145 MG TAB PO SCH (09:04)
[2022-10-11] MEDS: Levothyroxine Sodium 100 MCG TAB PO SCH (09:04)
[2022-10-11] MEDS: Trospium 20 MG TAB PO SCH (09:05)
[2022-10-11] MEDS ORDERED: Cepastat Lozenges 1 LOZ PO PRN (11:50)
[2022-10-11] MEDS ORDERED: Chloraseptic Spray 180 ml Bottle PO PRN (12:13)
[2022-10-11] MEDS: Latanoprost 0.005% Ophth Soln 2.5 ml Bottle EA EYE SCH (20:52)
[2022-10-11] MEDS ORDERED: Labetalol HCl 100 MG/20 ML VIAL SLOW IVP PRN (21:39)
[2022-10-12 05:09] LABS: ALT (SGPT) 57 U/L (8-55); AST (SGOT) 93 U/L (5-34); Alkaline Phosphatase 125 U/L (40-110); Anion Gap 13 mmol/L (10-20); BUN (Urea Nitrogen) 20 mg/dL (8.4-25.7); Bilirubin, Total 0.6 mg/dL (0.2-1.2); Calc. Creatinine Clearance 105 mL/min (70-130); Calcium 8.6 mg/dL (7.8-10.44); Carbon Dioxide 25 mmol/L (23-31); Chloride 100 mmol/L (98-107); Estimated GFR 88; Globulin 3.1 g/dL (2.4-3.5); Glucose 88 mg/dL (83-110); Magnesium 1.9 mg/dL (1.6-2.6); Phosphorus 2.4 mg/dL (2.3-4.7); Potassium 3.4 mmol/L (3.5-5.1); Protein, Total 6.1 g/dL (5.8-8.1); Sodium 135 mmol/L (136-145)
[2022-10-12 05:42] LABS: Eosinophils 1 % (0-10); Hemoglobin 12.2 g/dL (14.0-18.0); Lymphocytes 21 % (21-51); MDiff Complete? YES; Macrocytosis MODERATE=16-30 cells (100X) (0-5/hpf); Mean Corpuscular HGB CONC 33.3 g/dL (32.0-36.0); Mean Corpuscular Hemoglobin 34.8 pg (27.0-31.0); Mean Platelet Volume 6.9 fL (7.4-10.4); Monocytes 12 % (0-10); Neutrophil 64 % (42-75); Ovalocytes SLIGHT = 2-5 cells (100X) (0-1/hpf); Platelet Count 436 10x3/uL (130-400); Platelet Morphology Comment Appears Increased; RBC Distribution Width 12.4 % (11.5-14.5); White Blood Cell (WBC) Count 10.1 10x3/uL (4.8-10.8)
[2022-10-12] MEDS ORDERED: Electrolyte Replacement Protocol 1 EACH FS SCH (09:45)
[2022-10-12] MEDS ORDERED: Magnesium 2 GM/50 ML(in water) 2 GM in Premix Bag 1 BAG IVPB SCH (10:45)
[2022-10-12] MEDS: Sodium Chloride 0.9% 1,000 ML IV SCH (11:00)
[2022-10-12] MEDS: Potassium Chloride 20 MEQ TAB PO SCH ×2 (11:00→11:12)
[2022-10-12] MEDS ORDERED: Potassium Chloride 20 MEQ in Premix Bag 1 BAG IVPB SCH (11:15)
[2022-10-12] MEDS ORDERED: MD-Gastroview 120 ML BOT ONE (12:03)
[2022-10-12] MEDS: D5 1/2 NS w/20 mEq KCL 1,000 ML IV SCH ×2 (12:26→21:58)
[2022-10-12] MEDS: Thiamine HCl 200 MG/2 ML VIAL SLOW IVP SCH (20:24)
[2022-10-12] MEDS: Pantoprazole 40 MG VIAL IVP SCH (20:24)
[2022-10-12] MEDS: Latanoprost 0.005% Ophth Soln 2.5 ml Bottle EA EYE SCH (20:25)
[2022-10-13 05:47] LABS: ALT (SGPT) 85 U/L (8-55); AST (SGOT) 107 U/L (5-34); Albumin 3.2 g/dL (3.4-4.8); Alkaline Phosphatase 167 U/L (40-110); Anion Gap 13 mmol/L (10-20); BUN (Urea Nitrogen) 16 mg/dL (8.4-25.7); Bilirubin, Total 0.6 mg/dL (0.2-1.2); Calc. Creatinine Clearance 106 mL/min (70-130); Calcium 8.7 mg/dL (7.8-10.44); Carbon Dioxide 24 mmol/L (23-31); Chloride 104 mmol/L (98-107); Estimated GFR 88; Globulin 3.3 g/dL (2.4-3.5); Glucose 172 mg/dL (83-110); Magnesium 2.2 mg/dL (1.6-2.6); Phosphorus 1.9 mg/dL (2.3-4.7); Potassium 3.2 mmol/L (3.5-5.1); Protein, Total 6.5 g/dL (5.8-8.1); Sodium 138 mmol/L (136-145)
[2022-10-13 06:32] LABS: Band 3 % (5-11); Hemoglobin 12.1 g/dL (14.0-18.0); Hypochromia SLIGHT = 6-15 cells (100X) (0-5/hpf); Lymphocytes 9 % (21-51); MDiff Complete? YES; Macrocytosis SLIGHT = 6-15 cells (100X) (0-5/hpf); Mean Corpuscular HGB CONC 32.3 g/dL (32.0-36.0); Mean Platelet Volume 7.3 fL (7.4-10.4); Monocytes 11 % (0-10); Neutrophil 77 % (42-75); Platelet Count 462 10x3/uL (130-400); Platelet Morphology Comment Appears Adequate; RBC Distribution Width 12.6 % (11.5-14.5); Red Blood Cell (RBC) Count 3.57 mill/uL (4.70-6.10); White Blood Cell (WBC) Count 10.7 10x3/uL (4.8-10.8)
[2022-10-13] MEDS: D5 1/2 NS w/20 mEq KCL 1,000 ML IV SCH ×2 (07:53→16:55)
[2022-10-13] MEDS ORDERED: Potassium Chloride 20 MEQ in Premix Bag 1 BAG IVPB SCH (08:00)
[2022-10-13] MEDS ORDERED: Potassium Phosphate 15 MMOL in Sodium Chloride 0.9% 100 ML IVPB SCH (08:00)
[2022-10-13] MEDS: Pantoprazole 40 MG VIAL IVP SCH ×2 (09:14→20:53)
[2022-10-13] MEDS: Thiamine HCl 200 MG/2 ML VIAL SLOW IVP SCH (20:53)
[2022-10-13] MEDS: Latanoprost 0.005% Ophth Soln 2.5 ml Bottle EA EYE SCH (23:48)
[2022-10-14] MEDS: D5 1/2 NS w/20 mEq KCL 1,000 ML IV SCH ×3 (00:12→20:34)
[2022-10-14 07:22] LABS: Hemoglobin 11.5 g/dL (14.0-18.0); Mean Corpuscular Hemoglobin 34.9 pg (27.0-31.0); Mean Platelet Volume 7.1 fL (7.4-10.4); Platelet Count 439 10x3/uL (130-400); RBC Distribution Width 12.5 % (11.5-14.5); Red Blood Cell (RBC) Count 3.29 mill/uL (4.70-6.10); White Blood Cell (WBC) Count 11.1 10x3/uL (4.8-10.8)
[2022-10-14 07:36] LABS: Anion Gap 11 mmol/L (10-20); BUN (Urea Nitrogen) 12 mg/dL (8.4-25.7); Calc. Creatinine Clearance 121 mL/min (70-130); Calcium 8.3 mg/dL (7.8-10.44); Carbon Dioxide 23 mmol/L (23-31); Chloride 105 mmol/L (98-107); Estimated GFR 92; Glucose 141 mg/dL (83-110); Phosphorus 1.7 mg/dL (2.3-4.7); Potassium 3.5 mmol/L (3.5-5.1); Sodium 135 mmol/L (136-145)
[2022-10-14 08:13] LABS: Band 5 % (5-11); Eosinophils 1 % (0-10); Lymphocytes 7 % (21-51); MDiff Complete? YES; Macrocytosis SLIGHT = 6-15 cells (100X) (0-5/hpf); Monocytes 8 % (0-10); Neutrophil 78 % (42-75); Platelet Morphology Comment Appears Increased; Polychromasia SLIGHT = 2-3 cells (100X) (0-2/hpf)
[2022-10-14] MEDS: Potassium Chloride 20 MEQ in Premix Bag 1 BAG IVPB SCH (08:46)
[2022-10-14] MEDS: Pantoprazole 40 MG VIAL IVP SCH ×2 (08:47→20:34)
[2022-10-14] MEDS ORDERED: Magnesium 2 GM/50 ML(in water) 2 GM in Premix Bag 1 BAG IVPB SCH (09:00)
[2022-10-14] MEDS ORDERED: Potassium Phosphate 15 MMOL in Sodium Chloride 0.9% 100 ML IVPB SCH (09:00)
[2022-10-14] MEDS: CO Q-10 CAPSULE 100 MG PO SCH (17:06)
[2022-10-14] MEDS: Latanoprost 0.005% Ophth Soln 2.5 ml Bottle EA EYE SCH (20:34)
[2022-10-14] MEDS: Thiamine HCl 200 MG/2 ML VIAL SLOW IVP SCH (20:34)
[2022-10-14] MEDS ORDERED: Latanoprost 0.005% Ophth Soln 2.5 ml Bottle EA EYE SCH (21:00)
[2022-10-15] MEDS: Levothyroxine Sodium 100 MCG TAB PO SCH (05:25)
[2022-10-15] MEDS: D5 1/2 NS w/20 mEq KCL 1,000 ML IV SCH (05:37)
[2022-10-15 07:39] LABS: ALT (SGPT) 100 U/L (8-55); AST (SGOT) 124 U/L (5-34); Albumin 2.9 g/dL (3.4-4.8); Alkaline Phosphatase 218 U/L (40-110); Anion Gap 11 mmol/L (10-20); BUN (Urea Nitrogen) 9 mg/dL (8.4-25.7); Bilirubin, Total 1.4 mg/dL (0.2-1.2); Calc. Creatinine Clearance 119 mL/min (70-130); Calcium 8.4 mg/dL (7.8-10.44); Carbon Dioxide 22 mmol/L (23-31); Chloride 104 mmol/L (98-107); Estimated GFR 91; Glucose 122 mg/dL (83-110); Potassium 3.5 mmol/L (3.5-5.1); Protein, Total 5.9 g/dL (5.8-8.1); Sodium 133 mmol/L (136-145)
[2022-10-15] MEDS ORDERED: Aspirin 81 mg Enteric Coated Tablet PO SCH (09:00)
[2022-10-15] MEDS: Amlodipine 5 MG TAB PO SCH (09:45)
[2022-10-15] MEDS: CO Q-10 CAPSULE 100 MG PO SCH ×3 (09:45→16:47)
[2022-10-15] MEDS: Pantoprazole 40 MG VIAL IVP SCH (09:46)
[2022-10-15] MEDS: Potassium Chloride 20 MEQ in Premix Bag 1 BAG IVPB SCH (09:53)
[2022-10-15] MEDS: Latanoprost 0.005% Ophth Soln 2.5 ml Bottle EA EYE SCH (21:32)
[2022-10-16] MEDS: CO Q-10 CAPSULE 100 MG PO SCH ×2 (05:55→12:43)
[2022-10-16] MEDS: Levothyroxine Sodium 100 MCG TAB PO SCH (05:55)
[2022-10-16 06:58] LABS: ALT (SGPT) 94 U/L (8-55); AST (SGOT) 94 U/L (5-34); Albumin 2.8 g/dL (3.4-4.8); Alkaline Phosphatase 232 U/L (40-110); Anion Gap 14 mmol/L (10-20); BUN (Urea Nitrogen) 10 mg/dL (8.4-25.7); Bilirubin, Total 1.1 mg/dL (0.2-1.2); Calc. Creatinine Clearance 126 mL/min (70-130); Calcium 8.9 mg/dL (7.8-10.44); Carbon Dioxide 20 mmol/L (23-31); Chloride 102 mmol/L (98-107); Estimated GFR 93; Globulin 3.2 g/dL (2.4-3.5); Glucose 100 mg/dL (83-110); Lipase 21 U/L (8-78); Potassium 3.8 mmol/L (3.5-5.1); Sodium 132 mmol/L (136-145)
[2022-10-16] MEDS: Amlodipine 5 MG TAB PO SCH (08:13)
[2022-10-16 08:40] VITALS: BP 160/88; TEMP 98.6
[2022-10-16] MEDS ORDERED: Thiamine 100 MG TAB PO SCH (09:00)
== END 2022-10-16 16:37 | DRG 83 ==
LOC: ERS 09:48 → ERHOLD 13:43 → 2NO 18:48 → T4-B 10-13 14:15
PROVIDERS: ADMIT Internal Medicine; ATTEND Family Medicine
PROC: 0D9670Z Drainage of Stomach with Drainage Device, Via Natural or Artificial Opening (ICD-10-PCS; principal; 2022-10-11)
DX: S06.5X9A Traumatic subdural hemorrhage with loss of consciousness of unspecified duration, initial encounter (principal); K56.600 Partial intestinal obstruction, unspecified as to cause; K56.7 Ileus, unspecified; I10 Essential (primary) hypertension; E78.5 Hyperlipidemia, unspecified; E03.9 Hypothyroidism, unspecified; K21.9 Gastro-esophageal reflux disease without esophagitis; I25.10 Atherosclerotic heart disease of native coronary artery without angina pectoris; G47.33 Obstructive sleep apnea (adult) (pediatric); J32.9 Chronic sinusitis, unspecified; E66.9 Obesity, unspecified; E87.6 Hypokalemia; J44.9 Chronic obstructive pulmonary disease, unspecified; E83.39 Other disorders of phosphorus metabolism; R74.01 Elevation of levels of liver transaminase levels; Z96.1 Presence of intraocular lens; Z20.822 Contact with and (suspected) exposure to COVID-19; Z90.49 Acquired absence of other specified parts of digestive tract; Z79.899 Other long term (current) drug therapy; Z79.82 Long term (current) use of aspirin; Z98.890 Other specified postprocedural states; Z82.49 Family history of ischemic heart disease and other diseases of the circulatory system; Z79.890 Hormone replacement therapy; Z68.32 Body mass index [BMI] 32.0-32.9, adult; Z91.81 History of falling; Z85.46 Personal history of malignant neoplasm of prostate; Z85.828 Personal history of other malignant neoplasm of skin; Z98.42 Cataract extraction status, left eye; Z98.41 Cataract extraction status, right eye; W18.30XA Fall on same level, unspecified, initial encounter
CPT/HCPCS: 36415; 36416; 70450; 71045; 74018; 74177; 74250; 80048; 80053; 82550; 83605; 83690; 83735; 83880; 84100; 84443; 84484; 85025; 87040; 87811; 93005; C9113; J2405; J2550; J3411; J3475; J3480; J3490; J7042; J7050; Q9963; Q9967

== ENCOUNTER 2022-12-20 12:30 | Observation (INO) | payer MEDICARE ==
[~2022-12-20 12:30] MED LIST changes: +Iopamidol-370 76% 500 ML MDV (1 ML CHARGE) ONE; -Meclizine HCl 25 MG TAB ONE
[2022-12-20 14:02] LABS: #Eosinphils 0.3 thou/uL (0.0-0.7); #Lymphocytes 1.3 thou/uL (1.20-3.40); #Monocytes 1.1 thou/uL (0.11-0.59); #Neutrophils 8.9 thou/uL (1.40-6.50); %Basophils 0.1 % (0.0-1.0); %Eosinophils 2.4 % (0.0-10.0); %Monocytes 9.8 % (0.0-10.0); %Neutrophils 76.7 % (42.0-75.0); Hemoglobin 14.2 g/dL (14.0-18.0); Mean Corpuscular HGB CONC 33.8 g/dL (32.0-36.0); Mean Corpuscular Hemoglobin 33.9 pg (27.0-31.0); Mean Platelet Volume 7.8 fL (7.4-10.4); Platelet Count 429 10x3/uL (130-400); RBC Distribution Width 14.4 % (11.5-14.5); White Blood Cell (WBC) Count 11.5 10x3/uL (4.8-10.8)
[2022-12-20 14:29] LABS: ALT (SGPT) 20 U/L (8-55); AST (SGOT) 31 U/L (5-34); Albumin 3.2 g/dL (3.4-4.8); Alkaline Phosphatase 182 U/L (40-110); Anion Gap 18 mmol/L (10-20); BUN (Urea Nitrogen) 7 mg/dL (8.4-25.7); Bilirubin, Total 0.7 mg/dL (0.2-1.2); Calc. Creatinine Clearance 0 mL/min (70-130); Calcium 8.8 mg/dL (7.8-10.44); Carbon Dioxide 24 mmol/L (23-31); Chloride 97 mmol/L (98-107); Estimated GFR 99; Globulin 2.8 g/dL (2.4-3.5); Glucose 103 mg/dL (83-110); Lipase 27 U/L (8-78); Sodium 135 mmol/L (136-145)
[2022-12-20 15:48] LABS: Bacteria/HPF None Seen HPF (None Seen); Bilirubin Negative (Negative); Blood, Urine Negative (Negative); Clarity Turbid (Clear); Glucose, Urine (Dipstick) Normal (Negative); Ketone, Urine 10 mg/dL (Negative); Leukocyte Negative Leu/uL (Negative); Nitrite Negative (Negative); Protein, Urine (Dipstick) 30 mg/dL (Neg-Trace); RBC/HPF 0-3 HPF (0-3); Specific Gravity, Urine 1.032 (1.002-1.036); Squamous Epithelial None Seen HPF (0-3); Urobilinogen Normal mg/dL (Less than 2); WBC/HPF 0-3 HPF (0-3)
[2022-12-20] MEDS ORDERED: Acetaminophen 650 MG Suppository PR PRN (16:19)
[2022-12-20] MEDS ORDERED: Ondansetron PF 4 MG/2 ML Vial IVP PRN (16:19)
[2022-12-20] MEDS ORDERED: hydrALAZINE 20 MG/ML VIAL SLOW IVP PRN ×2 (16:21→16:24)
[2022-12-20] MEDS ORDERED: Cefepime 2 GM VIAL ONE (16:27)
[2022-12-20] MEDS ORDERED: Pantoprazole 40 MG VIAL IVP SCH (16:30)
[2022-12-20] MEDS ORDERED: Vancomycin 1 GM/200 ML (FROZEN) BAG ONE (17:32)
[2022-12-20 19:35] VITALS: BMI 25.9
[2022-12-20] MEDS: Sodium Chloride 0.9% 1,000 ML IV SCH (19:53)
[2022-12-20] MEDS: Ampicillin/Sulbactam 1.5 GM in Sodium Chloride 0.9% 100 ML IVPB SCH (20:18)
[2022-12-20] MEDS: Latanoprost 0.005% Ophth Soln 2.5 ml Bottle EA EYE SCH (20:18)
[2022-12-21] MEDS: Ampicillin/Sulbactam 1.5 GM in Sodium Chloride 0.9% 100 ML IVPB SCH ×3 (00:06→14:07)
[2022-12-21] MEDS: Sodium Chloride 0.9% 1,000 ML IV SCH (02:54)
[2022-12-21 07:03] LABS: #Eosinphils 0.3 thou/uL (0.0-0.7); #Lymphocytes 0.8 thou/uL (1.20-3.40); #Monocytes 0.9 thou/uL (0.11-0.59); #Neutrophils 7.6 thou/uL (1.40-6.50); %Basophils 0.4 % (0.0-1.0); %Eosinophils 3.5 % (0.0-10.0); %Lymphocytes 8.6 % (21.0-51.0); %Monocytes 8.9 % (0.0-10.0); %Neutrophils 78.7 % (42.0-75.0); Mean Corpuscular HGB CONC 32.4 g/dL (32.0-36.0); Mean Corpuscular Hemoglobin 32.9 pg (27.0-31.0); Mean Platelet Volume 7.6 fL (7.4-10.4); Platelet Count 385 10x3/uL (130-400); RBC Distribution Width 14.5 % (11.5-14.5); Red Blood Cell (RBC) Count 3.64 mill/uL (4.70-6.10); White Blood Cell (WBC) Count 9.7 10x3/uL (4.8-10.8)
[2022-12-21 07:27] LABS: ALT (SGPT) 16 U/L (8-55); AST (SGOT) 21 U/L (5-34); Albumin 2.6 g/dL (3.4-4.8); Alkaline Phosphatase 135 U/L (40-110); Anion Gap 14 mmol/L (10-20); BUN (Urea Nitrogen) 6 mg/dL (8.4-25.7); Bilirubin, Total 0.5 mg/dL (0.2-1.2); Calc. Creatinine Clearance 119 mL/min (70-130); Calcium 7.9 mg/dL (7.8-10.44); Carbon Dioxide 21 mmol/L (23-31); Chloride 105 mmol/L (98-107); Estimated GFR 98; Globulin 2.9 g/dL (2.4-3.5); Glucose 92 mg/dL (83-110); Potassium 3.3 mmol/L (3.5-5.1); Protein, Total 5.5 g/dL (5.8-8.1); Sodium 137 mmol/L (136-145)
[2022-12-21] MEDS ORDERED: Pantoprazole 40 MG VIAL IVP SCH (09:00)
[2022-12-21] MEDS: CO Q-10 CAPSULE 100 MG PO SCH (17:53)
[2022-12-21] MEDS: Latanoprost 0.005% Ophth Soln 2.5 ml Bottle EA EYE SCH (20:07)
[2022-12-22] MEDS ORDERED: Levothyroxine Sodium 100 MCG TAB PO SCH (06:00)
[2022-12-22] MEDS: CO Q-10 CAPSULE 100 MG PO SCH (08:20)
[2022-12-22] MEDS ORDERED: Fish Oil 1,000 MG CAP PO SCH (09:00)
[2022-12-22] MEDS ORDERED: Fenofibrate Nanocrystallized 145 MG TAB PO SCH (09:00)
[2022-12-22] MEDS ORDERED: Aspirin 81 mg Enteric Coated Tablet PO SCH (09:00)
[2022-12-22] MEDS ORDERED: Thiamine 100 MG TAB PO SCH (09:00)
[2022-12-22] MEDS ORDERED: Cholecalciferol 1,000 UNITS (25 MCG) TAB PO SCH (09:00)
[2022-12-22] MEDS ORDERED: Rosuvastatin 20 MG TAB PO SCH (09:00)
[2022-12-22] MEDS ORDERED: Amlodipine 5 MG TAB PO SCH (09:00)
[2022-12-22 12:33] VITALS: BP 126/77; TEMP 98.1
[2022-12-28] MEDS ORDERED: Anastrozole 1 MG TAB PO SCH (09:00)
== END 2022-12-22 13:02 | disposition home health service (06) ==
LOC: SUATTDRO 12:30 → ERS 12:30 → T4-A 16:13
PROVIDERS: ADMIT Internal Medicine; ATTEND Internal Medicine
DX: R53.1 Weakness (principal); E86.0 Dehydration; E87.1 Hypo-osmolality and hyponatremia; I11.9 Hypertensive heart disease without heart failure; E78.5 Hyperlipidemia, unspecified; E03.9 Hypothyroidism, unspecified; K21.9 Gastro-esophageal reflux disease without esophagitis; G89.29 Other chronic pain; M54.9 Dorsalgia, unspecified; D72.829 Elevated white blood cell count, unspecified; R62.7 Adult failure to thrive; Z68.25 Body mass index [BMI] 25.0-25.9, adult; Z85.46 Personal history of malignant neoplasm of prostate; Z79.82 Long term (current) use of aspirin; Z79.890 Hormone replacement therapy; Z79.899 Other long term (current) drug therapy
CPT/HCPCS: 51702; 70450; 71045; 74177; 80053; 83605; 83690; 84145; 84484; 85025; 87040; 93005; 94760; 96374; 96375 ×2; 96376; 97530; 99285; G0378 ×4; J0295 ×2; J3370; 36415; 81003; 81015; 84443; C9113; J0692; J3490; J7050; Q9967

== ENCOUNTER 2022-12-24 08:50 | Inpatient (IN) | payer MEDICARE ==
[2022-12-24 09:47] LABS: #Eosinphils 0.1 thou/uL (0.0-0.7); #Lymphocytes 1.1 thou/uL (1.20-3.40); #Monocytes 1.2 thou/uL (0.11-0.59); #Neutrophils 8.6 thou/uL (1.40-6.50); %Basophils 0.3 % (0.0-1.0); %Eosinophils 1.1 % (0.0-10.0); %Lymphocytes 10.1 % (21.0-51.0); %Monocytes 10.9 % (0.0-10.0); %Neutrophils 77.6 % (42.0-75.0); Hemoglobin 12.5 g/dL (14.0-18.0); Mean Corpuscular HGB CONC 31.6 g/dL (32.0-36.0); Mean Corpuscular Hemoglobin 32.4 pg (27.0-31.0); Mean Platelet Volume 7.7 fL (7.4-10.4); Platelet Count 448 10x3/uL (130-400); RBC Distribution Width 14.4 % (11.5-14.5); Red Blood Cell (RBC) Count 3.87 mill/uL (4.70-6.10); White Blood Cell (WBC) Count 11.1 10x3/uL (4.8-10.8)
[2022-12-24 10:12] LABS: ALT (SGPT) 13 U/L (8-55); AST (SGOT) 18 U/L (5-34); Albumin 2.8 g/dL (3.4-4.8); Alkaline Phosphatase 129 U/L (40-110); Anion Gap 21 mmol/L (10-20); BUN (Urea Nitrogen) 5 mg/dL (8.4-25.7); Bilirubin, Total 0.6 mg/dL (0.2-1.2); CK (CPK) 13 U/L (30-200); CRP (Inflammatory) 12.08 mg/dL (= or < 0.5); Calc. Creatinine Clearance 0 mL/min (70-130); Calcium 8.7 mg/dL (7.8-10.44); Carbon Dioxide 24 mmol/L (23-31); Chloride 97 mmol/L (98-107); Estimated GFR 98; Globulin 3.2 g/dL (2.4-3.5); Glucose 86 mg/dL (83-110); Sodium 139 mmol/L (136-145)
[2022-12-24] MEDS ORDERED: Potassium Chloride 20 MEQ/100 ML PREMIX BAG ONE ×2 (10:34→13:55)
[2022-12-24 11:42] LABS: Bilirubin Negative (Negative); Blood, Urine 1+ (Negative); Clarity Clear (Clear); Glucose, Urine (Dipstick) Normal (Negative); Ketone, Urine 100 mg/dL (Negative); Leukocyte Negative Leu/uL (Negative); Nitrite Negative (Negative); Protein, Urine (Dipstick) 30 mg/dL (Neg-Trace); RBC/HPF 21-50 HPF (0-3); Specific Gravity, Urine 1.017 (1.002-1.036); Squamous Epithelial 0-3 HPF (0-3); pH, Urine 5.5 (5.0-9.0)
[2022-12-24 11:44] LABS: Bacteria/HPF 1+ HPF (None Seen)
[2022-12-24] MEDS ORDERED: HYDROcodone/Acetaminophen 5/325 mg Tablet PO PRN (12:40)
[2022-12-24] MEDS ORDERED: Senokot S 8.6-50 MG TAB PO PRN (12:40)
[2022-12-24] MEDS ORDERED: Ondansetron PF 4 MG/2 ML Vial IVP PRN (12:40)
[2022-12-24] MEDS ORDERED: Guaifenesin DM 100-10/5 ML UDCUP PO PRN (12:40)
[2022-12-24] MEDS ORDERED: Acetaminophen 325 MG TAB PO PRN (12:40)
[2022-12-24] MEDS: Potassium Chloride 20 MEQ in Premix Bag 1 BAG IVPB SCH ×2 (14:00→14:32)
[2022-12-24] MEDS: Sodium Chloride 0.9% 1,000 ML IV SCH (14:00)
[2022-12-24 15:23] VITALS: BMI 29.5
[2022-12-24] MEDS: CO Q-10 CAPSULE 100 MG PO SCH (17:23)
[2022-12-24] MEDS: Famotidine 20 MG TAB PO SCH (19:46)
[2022-12-24] MEDS: Rosuvastatin 20 MG TAB PO SCH ×2 (19:46→19:51)
[2022-12-24] MEDS: Latanoprost 0.005% Ophth Soln 2.5 ml Bottle EA EYE SCH (19:47)
[2022-12-25] MEDS: CO Q-10 CAPSULE 100 MG PO SCH ×3 (01:33→16:14)
[2022-12-25] MEDS: Levothyroxine Sodium 100 MCG TAB PO SCH (01:33)
[2022-12-25] MEDS: Sodium Chloride 0.9% 1,000 ML IV SCH (03:43)
[2022-12-25 07:55] LABS: #Eosinphils 0.3 thou/uL (0.0-0.7); #Lymphocytes 1.1 thou/uL (1.20-3.40); #Monocytes 1.2 thou/uL (0.11-0.59); #Neutrophils 8.5 thou/uL (1.40-6.50); %Basophils 0.3 % (0.0-1.0); %Eosinophils 2.5 % (0.0-10.0); %Lymphocytes 9.7 % (21.0-51.0); %Monocytes 11.2 % (0.0-10.0); %Neutrophils 76.4 % (42.0-75.0); Hemoglobin 11.2 g/dL (14.0-18.0); Mean Corpuscular Hemoglobin 31.6 pg (27.0-31.0); Mean Platelet Volume 8.2 fL (7.4-10.4); Platelet Count 344 10x3/uL (130-400); RBC Distribution Width 14.4 % (11.5-14.5); Red Blood Cell (RBC) Count 3.55 mill/uL (4.70-6.10); White Blood Cell (WBC) Count 11.1 10x3/uL (4.8-10.8)
[2022-12-25 08:30] LABS: Anion Gap 19 mmol/L (10-20); BUN (Urea Nitrogen) 4 mg/dL (8.4-25.7); Calc. Creatinine Clearance 140 mL/min (70-130); Calcium 8.2 mg/dL (7.8-10.44); Carbon Dioxide 19 mmol/L (23-31); Chloride 103 mmol/L (98-107); Estimated GFR 101; Glucose 90 mg/dL (83-110); Potassium 2.9 mmol/L (3.5-5.1); Sodium 138 mmol/L (136-145)
[2022-12-25] MEDS: Fenofibrate Nanocrystallized 145 MG TAB PO SCH ×2 (08:41→10:03)
[2022-12-25] MEDS: Famotidine 20 MG TAB PO SCH ×3 (08:41→19:53)
[2022-12-25] MEDS: Amlodipine 5 MG TAB PO SCH ×2 (08:41→10:03)
[2022-12-25] MEDS ORDERED: Iopamidol-370 76% 500 ML MDV (1 ML CHARGE) ONE (10:19)
[2022-12-25] MEDS: Potassium Chloride 20 MEQ TAB PO SCH ×2 (16:14→19:54)
[2022-12-25 18:52] LABS: SARS-CoV-2 NAA Rapid Test Not Detected (NotDetected)
[2022-12-25] MEDS: Rosuvastatin 20 MG TAB PO SCH (19:53)
[2022-12-25] MEDS: Latanoprost 0.005% Ophth Soln 2.5 ml Bottle EA EYE SCH (19:55)
[2022-12-26] MEDS: Levothyroxine Sodium 100 MCG TAB PO SCH (05:16)
[2022-12-26] MEDS: Potassium Chloride 20 MEQ TAB PO SCH (05:16)
[2022-12-26 07:30] LABS: #Eosinphils 0.3 thou/uL (0.0-0.7); #Lymphocytes 1.2 thou/uL (1.20-3.40); #Monocytes 1.1 thou/uL (0.11-0.59); #Neutrophils 7.6 thou/uL (1.40-6.50); %Basophils 0.4 % (0.0-1.0); %Eosinophils 2.6 % (0.0-10.0); %Lymphocytes 12.1 % (21.0-51.0); %Monocytes 10.6 % (0.0-10.0); %Neutrophils 74.3 % (42.0-75.0); Hemoglobin 11.6 g/dL (14.0-18.0); Mean Corpuscular HGB CONC 32.8 g/dL (32.0-36.0); Mean Corpuscular Hemoglobin 33.5 pg (27.0-31.0); Mean Platelet Volume 7.8 fL (7.4-10.4); Platelet Count 399 10x3/uL (130-400); RBC Distribution Width 14.4 % (11.5-14.5); Red Blood Cell (RBC) Count 3.48 mill/uL (4.70-6.10); White Blood Cell (WBC) Count 10.2 10x3/uL (4.8-10.8)
[2022-12-26 07:58] LABS: ALT (SGPT) 10 U/L (8-55); AST (SGOT) 17 U/L (5-34); Albumin 2.5 g/dL (3.4-4.8); Alkaline Phosphatase 120 U/L (40-110); Anion Gap 16 mmol/L (10-20); BUN (Urea Nitrogen) 4 mg/dL (8.4-25.7); Bilirubin, Total 0.5 mg/dL (0.2-1.2); CRP (Inflammatory) 10.31 mg/dL (= or < 0.5); Calc. Creatinine Clearance 126 mL/min (70-130); Calcium 8.4 mg/dL (7.8-10.44); Carbon Dioxide 22 mmol/L (23-31); Chloride 102 mmol/L (98-107); Estimated GFR 97; Globulin 2.7 g/dL (2.4-3.5); Glucose 84 mg/dL (83-110); Potassium 3.4 mmol/L (3.5-5.1); Protein, Total 5.2 g/dL (5.8-8.1); Sodium 137 mmol/L (136-145)
[2022-12-26] MEDS: Fenofibrate Nanocrystallized 145 MG TAB PO SCH (09:32)
[2022-12-26] MEDS: CO Q-10 CAPSULE 100 MG PO SCH ×3 (09:32→16:53)
[2022-12-26] MEDS: Famotidine 20 MG TAB PO SCH ×2 (09:33→20:49)
[2022-12-26] MEDS: Amlodipine 5 MG TAB PO SCH (09:33)
[2022-12-26] MEDS: Cefepime 2 GM in Sodium Chloride 0.9% 100 ML IVPB SCH (20:47)
[2022-12-26] MEDS: Rosuvastatin 20 MG TAB PO SCH (20:48)
[2022-12-26] MEDS: Latanoprost 0.005% Ophth Soln 2.5 ml Bottle EA EYE SCH (21:00)
[2022-12-27] MEDS: Levothyroxine Sodium 100 MCG TAB PO SCH (05:20)
[2022-12-27] MEDS: Famotidine 20 MG TAB PO SCH ×2 (08:54→20:01)
[2022-12-27] MEDS: Amlodipine 5 MG TAB PO SCH (08:54)
[2022-12-27] MEDS: Fenofibrate Nanocrystallized 145 MG TAB PO SCH (08:54)
[2022-12-27] MEDS: CO Q-10 CAPSULE 100 MG PO SCH ×3 (08:54→17:06)
[2022-12-27] MEDS: Cefepime 2 GM in Sodium Chloride 0.9% 100 ML IVPB SCH ×2 (08:54→20:01)
[2022-12-27] MEDS: Rosuvastatin 20 MG TAB PO SCH (19:51)
[2022-12-27] MEDS: Latanoprost 0.005% Ophth Soln 2.5 ml Bottle EA EYE SCH (20:07)
[2022-12-28] MEDS: Levothyroxine Sodium 100 MCG TAB PO SCH (05:02)
[2022-12-28 07:24] LABS: #Eosinphils 0.3 thou/uL (0.0-0.7); #Lymphocytes 0.5 thou/uL (1.20-3.40); #Neutrophils 7.2 thou/uL (1.40-6.50); %Basophils 0.3 % (0.0-1.0); %Eosinophils 3.6 % (0.0-10.0); %Lymphocytes 5.3 % (21.0-51.0); %Monocytes 11.4 % (0.0-10.0); %Neutrophils 79.4 % (42.0-75.0); Hemoglobin 11.3 g/dL (14.0-18.0); Mean Corpuscular HGB CONC 32.8 g/dL (32.0-36.0); Mean Corpuscular Hemoglobin 32.7 pg (27.0-31.0); Mean Corpuscular Volume 99.6 fl (78.0-98.0); Mean Platelet Volume 7.7 fL (7.4-10.4); Platelet Count 360 10x3/uL (130-400); RBC Distribution Width 14.5 % (11.5-14.5); Red Blood Cell (RBC) Count 3.45 mill/uL (4.70-6.10)
[2022-12-28 07:35] LABS: INR-International Normal Ratio 1.4; Prothrombin Time 17.5 sec (12.0-14.7)
[2022-12-28 07:48] LABS: Anion Gap 14 mmol/L (10-20); BUN (Urea Nitrogen) 5 mg/dL (8.4-25.7); CRP (Inflammatory) 13.24 mg/dL (= or < 0.5); Calc. Creatinine Clearance 135 mL/min (70-130); Calcium 8.5 mg/dL (7.8-10.44); Carbon Dioxide 24 mmol/L (23-31); Chloride 99 mmol/L (98-107); Estimated GFR 100; Glucose 100 mg/dL (83-110); Potassium 3.2 mmol/L (3.5-5.1); Sodium 134 mmol/L (136-145)
[2022-12-28] MEDS: Amlodipine 5 MG TAB PO SCH (08:49)
[2022-12-28] MEDS: Fenofibrate Nanocrystallized 145 MG TAB PO SCH (08:52)
[2022-12-28] MEDS: Cefepime 2 GM in Sodium Chloride 0.9% 100 ML IVPB SCH ×2 (08:52→21:24)
[2022-12-28] MEDS: CO Q-10 CAPSULE 100 MG PO SCH ×3 (08:52→17:06)
[2022-12-28] MEDS: Famotidine 20 MG TAB PO SCH ×2 (08:52→21:25)
[2022-12-28 18:52] LABS: RBC Count-Automated (BF) 460 /cu.mm; WBC/Nucleated-Auto (BF) 1449 /cu.mm
[2022-12-28 19:19] LABS: BF Color Yellow; Body Fluid Source Thoracentesis Fluid; Clarity Hazy (Clear); Tube # EDTA
[2022-12-28 19:20] LABS: BF Segmented Neutrophils 13 %; Cell Count Non Hematic 63 %; Lymphocytes 24 %
[2022-12-28 20:13] LABS: Pleural Fluid, Amylase Less than 30 U/L (Not Available); Pleural Fluid, Glucose 99 mg/dL; Pleural Fluid, LDH 111 U/L (Not Available); Pleural Fluid, Protein 2.3 g/dL
[2022-12-28 20:14] LABS: Pleural Fluid, Protein 2.3 g/dL
[2022-12-28 21:01] LABS: Fluid, pH - Pleural Fld Greater than 7.50 (7.60 - 7.66)
[2022-12-28] MEDS: Rosuvastatin 20 MG TAB PO SCH (21:24)
[2022-12-28] MEDS: Latanoprost 0.005% Ophth Soln 2.5 ml Bottle EA EYE SCH (21:25)
[2022-12-29] MEDS: Levothyroxine Sodium 100 MCG TAB PO SCH (05:30)
[2022-12-29 07:31] LABS: #Eosinphils 0.4 thou/uL (0.0-0.7); #Lymphocytes 0.8 thou/uL (1.20-3.40); #Neutrophils 5.5 thou/uL (1.40-6.50); %Basophils 0.3 % (0.0-1.0); %Eosinophils 5.3 % (0.0-10.0); %Lymphocytes 9.7 % (21.0-51.0); %Monocytes 13.6 % (0.0-10.0); Hemoglobin 11.1 g/dL (14.0-18.0); Mean Corpuscular HGB CONC 33.1 g/dL (32.0-36.0); Mean Corpuscular Hemoglobin 32.8 pg (27.0-31.0); Mean Corpuscular Volume 98.9 fl (78.0-98.0); Platelet Count 352 10x3/uL (130-400); RBC Distribution Width 14.5 % (11.5-14.5); Red Blood Cell (RBC) Count 3.39 mill/uL (4.70-6.10); White Blood Cell (WBC) Count 7.7 10x3/uL (4.8-10.8)
[2022-12-29] MEDS ORDERED: Electrolyte Replacement Protocol 1 EACH FS SCH (08:00)
[2022-12-29] MEDS ORDERED: Potassium Chloride 20 MEQ TAB PO SCH ×2 (08:00→12:00)
[2022-12-29 08:22] LABS: Anion Gap 15 mmol/L (10-20); BUN (Urea Nitrogen) 7 mg/dL (8.4-25.7); Calc. Creatinine Clearance 143 mL/min (70-130); Calcium 8.3 mg/dL (7.8-10.44); Carbon Dioxide 26 mmol/L (23-31); Chloride 98 mmol/L (98-107); Estimated GFR 101; Glucose 105 mg/dL (83-110); Potassium 2.8 mmol/L (3.5-5.1); Sodium 136 mmol/L (136-145)
[2022-12-29] MEDS: Fenofibrate Nanocrystallized 145 MG TAB PO SCH (09:10)
[2022-12-29] MEDS: Famotidine 20 MG TAB PO SCH ×2 (09:10→21:57)
[2022-12-29] MEDS: CO Q-10 CAPSULE 100 MG PO SCH ×3 (09:10→17:40)
[2022-12-29] MEDS: Amlodipine 5 MG TAB PO SCH (09:11)
[2022-12-29] MEDS: Cefepime 2 GM in Sodium Chloride 0.9% 100 ML IVPB SCH ×2 (09:11→21:56)
[2022-12-29] MEDS: Latanoprost 0.005% Ophth Soln 2.5 ml Bottle EA EYE SCH (21:00)
[2022-12-29] MEDS: Rosuvastatin 20 MG TAB PO SCH (21:57)
[2022-12-30] MEDS: Levothyroxine Sodium 100 MCG TAB PO SCH (05:34)
[2022-12-30 07:14] LABS: Anion Gap 13 mmol/L (10-20); BUN (Urea Nitrogen) 6 mg/dL (8.4-25.7); Calc. Creatinine Clearance 149 mL/min (70-130); Calcium 8.4 mg/dL (7.8-10.44); Carbon Dioxide 26 mmol/L (23-31); Chloride 100 mmol/L (98-107); Estimated GFR 102; Glucose 86 mg/dL (83-110); Magnesium 1.5 mg/dL (1.6-2.6); Potassium 3.3 mmol/L (3.5-5.1); Sodium 136 mmol/L (136-145)
[2022-12-30] MEDS ORDERED: Potassium Chloride 20 MEQ TAB PO SCH (08:00)
[2022-12-30] MEDS ORDERED: Magnesium 2 GM/50 ML(in water) 2 GM in Premix Bag 1 BAG IVPB SCH (08:00)
[2022-12-30] MEDS: Fenofibrate Nanocrystallized 145 MG TAB PO SCH (09:11)
[2022-12-30] MEDS: Cefepime 2 GM in Sodium Chloride 0.9% 100 ML IVPB SCH ×2 (09:12→21:52)
[2022-12-30] MEDS: Famotidine 20 MG TAB PO SCH ×2 (09:12→21:52)
[2022-12-30] MEDS: CO Q-10 CAPSULE 100 MG PO SCH ×3 (09:12→16:25)
[2022-12-30] MEDS: Amlodipine 5 MG TAB PO SCH (09:12)
[2022-12-30] MEDS: Latanoprost 0.005% Ophth Soln 2.5 ml Bottle EA EYE SCH (21:52)
[2022-12-30] MEDS: Rosuvastatin 20 MG TAB PO SCH (21:52)
[2022-12-31] MEDS: Levothyroxine Sodium 100 MCG TAB PO SCH (06:40)
[2022-12-31 08:51] LABS: Anion Gap 12 mmol/L (10-20); BUN (Urea Nitrogen) 6 mg/dL (8.4-25.7); Calc. Creatinine Clearance 146 mL/min (70-130); Calcium 8.5 mg/dL (7.8-10.44); Carbon Dioxide 27 mmol/L (23-31); Chloride 100 mmol/L (98-107); Estimated GFR 102; Glucose 100 mg/dL (83-110); Potassium 3.7 mmol/L (3.5-5.1); Sodium 135 mmol/L (136-145)
[2022-12-31] MEDS: Cefepime 2 GM in Sodium Chloride 0.9% 100 ML IVPB SCH ×2 (09:13→21:58)
[2022-12-31] MEDS: Famotidine 20 MG TAB PO SCH ×2 (09:14→21:58)
[2022-12-31] MEDS: Fenofibrate Nanocrystallized 145 MG TAB PO SCH (09:14)
[2022-12-31] MEDS: CO Q-10 CAPSULE 100 MG PO SCH ×3 (09:14→16:50)
[2022-12-31] MEDS: Amlodipine 5 MG TAB PO SCH (09:14)
[2022-12-31] MEDS ORDERED: Furosemide 40 MG/4 ML VIAL SLOW IVP SCH (09:15)
[2022-12-31] MEDS: Latanoprost 0.005% Ophth Soln 2.5 ml Bottle EA EYE SCH (21:58)
[2022-12-31] MEDS: Rosuvastatin 20 MG TAB PO SCH (21:58)
[2023-01-01] MEDS: Levothyroxine Sodium 100 MCG TAB PO SCH (06:37)
[2023-01-01 07:48] LABS: Anion Gap 15 mmol/L (10-20); BUN (Urea Nitrogen) 8 mg/dL (8.4-25.7); Calc. Creatinine Clearance 133 mL/min (70-130); Calcium 8.7 mg/dL (7.8-10.44); Carbon Dioxide 28 mmol/L (23-31); Chloride 97 mmol/L (98-107); Estimated GFR 99; Glucose 111 mg/dL (83-110); Magnesium 1.7 mg/dL (1.6-2.6); Potassium 3.4 mmol/L (3.5-5.1); Sodium 137 mmol/L (136-145)
[2023-01-01] MEDS ORDERED: Magnesium 2 GM/50 ML(in water) 2 GM in Premix Bag 1 BAG IVPB SCH (09:00)
[2023-01-01] MEDS ORDERED: Potassium Chloride 20 MEQ TAB PO SCH (09:00)
[2023-01-01] MEDS: Cefepime 2 GM in Sodium Chloride 0.9% 100 ML IVPB SCH (09:19)
[2023-01-01] MEDS: Fenofibrate Nanocrystallized 145 MG TAB PO SCH (09:21)
[2023-01-01] MEDS: CO Q-10 CAPSULE 100 MG PO SCH ×3 (09:21→16:35)
[2023-01-01] MEDS: Famotidine 20 MG TAB PO SCH ×2 (09:21→21:27)
[2023-01-01] MEDS: Amlodipine 5 MG TAB PO SCH (09:41)
[2023-01-01] MEDS: Rosuvastatin 20 MG TAB PO SCH (21:27)
[2023-01-01] MEDS: Latanoprost 0.005% Ophth Soln 2.5 ml Bottle EA EYE SCH (21:27)
[2023-01-02] MEDS: Levothyroxine Sodium 100 MCG TAB PO SCH (06:34)
[2023-01-02 07:52] LABS: Anion Gap 14 mmol/L (10-20); BUN (Urea Nitrogen) 10 mg/dL (8.4-25.7); Calc. Creatinine Clearance 130 mL/min (70-130); Calcium 8.7 mg/dL (7.8-10.44); Carbon Dioxide 28 mmol/L (23-31); Chloride 97 mmol/L (98-107); Estimated GFR 98; Glucose 116 mg/dL (83-110); Potassium 3.9 mmol/L (3.5-5.1); Sodium 135 mmol/L (136-145)
[2023-01-02] MEDS: CO Q-10 CAPSULE 100 MG PO SCH ×2 (08:23→12:23)
[2023-01-02] MEDS: Famotidine 20 MG TAB PO SCH (08:23)
[2023-01-02] MEDS: Fenofibrate Nanocrystallized 145 MG TAB PO SCH (08:23)
[2023-01-02 12:16] VITALS: BP 112/62; TEMP 98.5
[2023-01-06 13:16] LABS: Fungus Stain Final report (.)
== END 2023-01-02 12:34 | disposition home health service (06) | DRG 187 ==
LOC: ERS 08:50 → ERHOLD 12:24 → T4-B 15:15 → OBSVTOIN 12-26 15:46
PROVIDERS: ADMIT Hospitalist; ATTEND Family Medicine
PROC: 0W9B3ZZ Drainage of Left Pleural Cavity, Percutaneous Approach (ICD-10-PCS; principal; 2022-12-28)
DX: J90 Pleural effusion, not elsewhere classified (principal); J98.11 Atelectasis; R62.7 Adult failure to thrive; R53.1 Weakness; Z20.822 Contact with and (suspected) exposure to COVID-19; E87.6 Hypokalemia; R13.10 Dysphagia, unspecified; H10.9 Unspecified conjunctivitis; I10 Essential (primary) hypertension; K21.9 Gastro-esophageal reflux disease without esophagitis; I25.10 Atherosclerotic heart disease of native coronary artery without angina pectoris; E03.9 Hypothyroidism, unspecified; R53.81 Other malaise; I95.9 Hypotension, unspecified; R63.0 Anorexia; G89.29 Other chronic pain; M54.9 Dorsalgia, unspecified; E78.00 Pure hypercholesterolemia, unspecified; E66.9 Obesity, unspecified; R91.1 Solitary pulmonary nodule; G47.30 Sleep apnea, unspecified; G47.33 Obstructive sleep apnea (adult) (pediatric); Z90.49 Acquired absence of other specified parts of digestive tract; Z98.49 Cataract extraction status, unspecified eye; Z85.828 Personal history of other malignant neoplasm of skin; Z82.49 Family history of ischemic heart disease and other diseases of the circulatory system; Z79.899 Other long term (current) drug therapy; Z79.890 Hormone replacement therapy; Z79.82 Long term (current) use of aspirin; Z68.29 Body mass index [BMI] 29.0-29.9, adult; Z85.46 Personal history of malignant neoplasm of prostate
CPT/HCPCS: 36415; 36416; 51701; 70450; 70486; 71045; 71275; 74230; 80048; 80053; 81003; 81015; 82150; 82550; 82945; 83615; 83735; 84157; 84484; 85025; 85060; 85610; 86140; 87040; 87070; 87077; 87086; 87116; 87149; 87186; 87205; 87206; 87633; 88112; 88305; 89051; 93005; 94640; 96365; 96366; 96372; G0378; J0692; J1650; J1940; J3475; J3480; J3490; J7050; J7611; Q9967; U0002